=== PATIENT | male | born 1990 | race Caucasian/White ===

== ENCOUNTER 2018-03-24 11:37 | Emergency (ER) | payer MEDICAID ==
[~2018-03-24] VITALS: Ht 182.9 cm; Wt 88.9 kg
[2018-03-24] MEDS ORDERED: BUPROPION XL300 MG ORAL (12:02)
--- NOTE | 2018-03-24 12:21 | Emergency Room Report ---
History of Present Illness General Chief Complaint: Behavioral Complaint Source: Patient Present Illness HPI 29-year-old male patient presents ER complaining of thoughts of hurting himself. Patient reports thoughts been present for the past 2 days. Patient reports history of anxiety and depression. Reports she attempted to commit suicide "maybe 20 years ago". Reports she has been on medication previously such as Wellbutrin for depression, states he is not taking any medication currently. States that he has a plan, was looking for a gun in his girlfriend' s brother's house. Girlfriend is currently in ER with him. Patient is not currently on a hold, walked into the ER. Denies fever, chest pain, shortness of breath. Reports smokes marijuana, denies other drug use. Return reports drinks socially, states not currently drinking. patient is resting comfortably, answering questions, calm during interview. reports hit head with a frying guzman last night, denies loss consciousness. Denies vomiting or vision changes. Reports small amount of swelling on anterior forehead. Denies BLUE. Contrary to nurses note, no complaints of pain at this time. Allergies: Coded Allergies: SULFAMETHOXAZOLE (Verified Allergy, Unknown, 03/24/18) TRIMETHOPRIM (Verified Allergy, Unknown, 03/24/18) Patient History Past Medical History: see triage record Reviewed Nursing Documentation: PMH: Agreed; PSxH: Agreed Nursing Documentation-PMH Past Medical History: No History, Except For History Of Psychiatric Problem: Yes - depression anxiety Hx Neurological Problems: Yes - left sided facial pain Review of Systems All Other Systems: negative except mentioned in HPI Physical Exam Vital Signs Date Time Temp Pulse Resp B/P (MAP) Pulse Ox O2 Delivery O2 Flow Rate FiO2 03/24/18 11:56 98.4 79 16 137/90 99 Room Air Sp02 EP Interpretation: reviewed, normal General Appearance: well appearing, no apparent distress, alert, GCS 15, non- toxic Head: normocephalic, atraumatic, other - mild swelling noted of her middle anterior forehead, no skull depression, no hematoma, no erythema Eyes: bilateral eye normal inspection, bilateral eye PERRL ENT: hearing grossly normal, normal pharynx, no angioedema, normal voice, uvula midline, moist mucus membranes Neck: full range of motion Respiratory: lungs clear, normal breath sounds, no rhonchi, no respiratory distress, no accessory muscle use, no wheezing, speaking full sentences Cardiovascular #1: regular rate, rhythm, no edema Gastrointestinal: non tender, soft, no mass, non-distended, no guarding, no rebound Genitourinary: no CVA tenderness Musculoskeletal: back normal, digits/nails normal, gait/station normal, normal range of motion, non-tender Neurologic: alert, oriented x3, responsive, construction carpenters helper III-XII nml as tested, motor strength/tone normal, SLR negative, sensory intact, cerebellar normal, normal gait, speech normal Psychiatric: mood/affect normal, other - thoughts of hurting himself Skin: no rash Lymphatic: no adenopathy Medical Decision Making PA Attestation Dr. La is my supervising Physician whom patient management has been discussed with. Diagnostic Impression: Primary Impression: Thoughts of self harm ER Course Pt. presents to the ED c/o thoughts of hurting himself. Ddx considered but are not limited to anxiety, depression, drug use, alcohol use , behavioral disorder. or focal neuro deficits, cranial nerves intact as tested does not require CT of head at this time. Apply ice to affected area for swelling symptoms. Vital signs: are WNL, pt. is afebrile Ordered labs, urine drug screen, serum alcohol. ER COURSE: patient girlfriend with patient in ER during stay. physical exam benign, lungs clear to auscultation, no abdominal tenderness to palpation. CBC and CMP unremarkable UA shows no signs of infection Purulent drainage positive for THC, patient may to use of marijuana, remainder of exam negative. Salicylates and acetaminophen not elevated above normal limits Serum alcohol not elevated Apply ice to forehead for swelling and take Tylenol for pain symptoms. Patient is medically cleared for transfer to psychiatric facility. Okay for transfer to psychiatric facility. Patient resting comfortably in bed. Reports mild anxious symptoms, requesting medication. provide patient with Ativan PO. Patient reports anxious symptoms improved. Patient transferred to [facility]. - Please note that this Emergency Department Report was dictated using [employer] technical manager technology software, occasionally this can lead to erroneous entry secondary to interpretation by the dictation equipment. Labs Test 03/24/18 12:41 White Blood Count 7.3 K/UL (4.8-10.8) Red Blood Count 5.86 M/UL (4.70-6.10) Hemoglobin 16.4 G/DL (14.2-18.0) Hematocrit 48.2 % (42.0-52.0) Mean Corpuscular Volume 82 FL (80-99) Mean Corpuscular Hemoglobin 28.1 PG (27.0-31.0) Mean Corpuscular Hemoglobin Concent 34.2 G/DL (32.0-36.0) Red Cell Distribution Width 11.9 % (11.6-14.8) Platelet Count 323 K/UL (150-450) Mean Platelet Volume 7.5 FL (6.5-10.1) Neutrophils (%) (Auto) 67.5 % (45.0-75.0) Lymphocytes (%) (Auto) 24.8 % (20.0-45.0) Monocytes (%) (Auto) 6.5 % (1.0-10.0) Eosinophils (%) (Auto) 0.2 % (0.0-3.0) Basophils (%) (Auto) 1.0 % (0.0-2.0) Urine Color Yellow Urine Appearance Clear Urine pH 5 (4.5-8.0) Urine Specific [place] 1.020 (1.005-1.035) Urine Protein Negative (NEGATIVE) Urine Glucose (UA) Negative (NEGATIVE) Urine Ketones Negative (NEGATIVE) Urine Blood 3+ (NEGATIVE) Urine Nitrite Negative (NEGATIVE) Urine Bilirubin Negative (NEGATIVE) Urine Urobilinogen Normal MG/DL (0.0-1.0) Urine Leukocyte Esterase Negative (NEGATIVE) Urine RBC 5-10 /HPF (0 - 0) Urine WBC 0-2 /HPF (0 - 0) Urine Squamous Epithelial Cells Occasional /LPF Urine Bacteria Occasional /HPF (NONE) Urine Mucus Few /LPF (NONE/OCC) Sodium Level 143 MMOL/L (136-145) Potassium Level 4.2 MMOL/L (3.5-5.1) Chloride Level 106 MMOL/L (98-107) Carbon Dioxide Level 30 MMOL/L (21-32) Anion Gap 7 mmol/L (5-15) Blood Urea Nitrogen 8 mg/dL (7-18) Creatinine 1.2 MG/DL (0.55-1.30) Estimat Glomerular Filtration Rate > 60 mL/min (>60) Glucose Level 104 MG/DL (74-106) Calcium Level 9.4 MG/DL (8.5-10.1) Total Bilirubin 0.6 MG/DL (0.2-1.0) Aspartate Amino Transf (AST/SGOT) 29 U/L (15-37) Alanine Aminotransferase (ALT/SGPT) 38 U/L (12-78) Alkaline Phosphatase 77 U/L (46-116) Total Protein 7.6 G/DL (6.4-8.2) Albumin 4.0 G/DL (3.4-5.0) Globulin 3.6 g/dL Albumin/Globulin Ratio 1.1 (1.0-2.7) Salicylates Level < 0.5 ug/mL (2.8-20) Urine Opiates Screen Negative (NEGATIVE) Acetaminophen Level < 2 MCG/ML (10-30) Urine Barbiturates Screen Negative (NEGATIVE) Phencyclidine (PCP) Screen Negative (NEGATIVE) Urine Amphetamines Screen Negative (NEGATIVE) Urine Benzodiazepines Screen Negative (NEGATIVE) Urine Cocaine Screen Negative (NEGATIVE) Urine Marijuana (THC) Screen Positive (NEGATIVE) Serum Alcohol < 3 mg/dL Last Vital Signs Date Time Temp Pulse Resp B/P (MAP) Pulse Ox O2 Delivery O2 Flow Rate FiO2 03/24/18 11:56 98.4 79 16 137/90 99 Room Air Disposition: XFER TO PSYCH HOSP/UNIT Condition: Stable Yoandy Perdomo Mar 24, 2018 12:21
[2018-03-24 12:35] VITALS: BP 137/90
[2018-03-24 13:00] LABS: EOSINOPHILS % (AUTO) 0.2 % (0.0-3.0); HEMATOCRIT 48.2 % (42.0-52.0); HEMOGLOBIN 16.4 G/DL (14.2-18.0); LYMPHOCYTES % (AUTO) 24.8 % (20.0-45.0); MEAN CORPUSCULAR VOLUME 82 FL (80-99); MONOCYTES % (AUTO) 6.5 % (1.0-10.0); NEUTROPHILS % (AUTO) 67.5 % (45.0-75.0); PLATELET COUNT 323 K/UL (150-450); RED BLOOD COUNT 5.86 M/UL (4.70-6.10); RED CELL DISTRIBUTION WIDTH 11.9 % (11.6-14.8); WHITE BLOOD COUNT 7.3 K/UL (4.8-10.8)
[2018-03-24 13:07] LABS: APPEARANCE,URINE CLEAR; BILIRUBIN, URINE NEGATIVE (NEGATIVE); GLUCOSE, URINE (UA) NEGATIVE (NEGATIVE); KETONES,URINE NEGATIVE (NEGATIVE); LEUKOCYTE ESTERASE ,URINE NEGATIVE (NEGATIVE); NITRITE,URINE NEGATIVE (NEGATIVE); PH,URINE 5 (4.5-8.0); PROTEIN,URINE NEGATIVE (NEGATIVE); UROBILINOGEN,URINE NORMAL MG/DL (0.0-1.0)
[2018-03-24 13:13] LABS: ANION GAP 7 mmol/L (5-15); BLOOD UREA NITROGEN 8 mg/dL (7-18); CALCIUM 9.4 MG/DL (8.5-10.1); CARBON DIOXIDE 30 MMOL/L (21-32); CHLORIDE 106 MMOL/L (98-107); CREATININE 1.2 MG/DL (0.55-1.30); POTASSIUM 4.2 MMOL/L (3.5-5.1); SODIUM 143 MMOL/L (136-145)
[2018-03-24 13:18] LABS: ALANINE AMINOTRANSFERASE 38 U/L (12-78); ALBUMIN/GLOBULIN RATIO 1.1 (1.0-2.7); ALKALINE PHOSPHATASE 77 U/L (46-116); ASPARTATE AMINO TRANSFERASE 29 U/L (15-37); BILIRUBIN,TOTAL 0.6 MG/DL (0.2-1.0)
[2018-03-24 13:44] LABS: COLOR,URINE YELLOW
[2018-03-24 15:39] VITALS: BP 132/87
[2018-03-24] MEDS ORDERED: LORazepam 0.5mg tab ORAL ONE (17:00)
[2018-03-24 18:16] VITALS: BP 129/83
[2018-03-24 19:18] VITALS: BP 132/86
[2018-03-24 20:10] VITALS: BP 128/80
[2018-03-24 20:12] VITALS: BP 128/80
== END 2018-03-24 20:15 ==
LOC: EMR 13:32
DX: F41.8 Other specified anxiety disorders (principal); R45.851 Suicidal ideations; R51 Headache; Z88.2 Allergy status to sulfonamides; Z88.3 Allergy status to other anti-infective agents
CPT/HCPCS: 36415; 80053; 80307; 80329; 81003; 85025; 99285